=== PATIENT | female | born 2000 | race African-American/Black ===

== ENCOUNTER 2022-01-02 15:28 | Outpatient (CLI) | payer BC | END 2022-01-02 15:29 | disposition home or self-care (01) | LOC: BICULT 15:28 | PROVIDERS: ATTEND Physician Assistant Medical | DX: R19.7 Diarrhea, unspecified (principal); R10.9 Unspecified abdominal pain; R11.2 Nausea with vomiting, unspecified; K82.4 Cholesterolosis of gallbladder | CPT/HCPCS: 76700 ==

== ENCOUNTER 2022-01-17 12:40 | Outpatient (CLI) | payer BC | END 2022-01-17 12:41 | disposition home or self-care (01) | LOC: NM 12:40 | PROVIDERS: ATTEND Physician Assistant Medical | DX: R10.9 Unspecified abdominal pain (principal); R11.2 Nausea with vomiting, unspecified | CPT/HCPCS: 78227; A9537 ==

== ENCOUNTER 2024-07-08 14:09 | Outpatient (CLI) | payer BC | END 2024-07-08 14:10 | disposition home or self-care (01) | LOC: BICRAD 14:09 | PROVIDERS: ATTEND Family Medicine | DX: M25.561 Pain in right knee (principal) ==